=== PATIENT | female | born 1985 | race Caucasian/White ===

== ENCOUNTER 2020-04-09 22:26 | Emergency (ER) | payer OTHER, MEDICAID ==
[~2020-04-09] VITALS: Ht 165.1 cm; Wt 95.3 kg
[~2020-04-09 22:26] MED LIST: ACETAMINOPHEN-1 EAC1 PO; AMOXICILLIN500 M1 PO; HYDROCODONE-AP1 EAC6 PO; MEDROLDOSEPACK PO; NORCO 5-325 TA1 EACH PO; ZOFRAN ODT4 MG SUBLING
[2020-04-09 22:34] VITALS: BP 146/62
[2020-04-09] MEDS ORDERED: INDOMETHACIN 2525 MG PO (23:19)
[2020-04-09] MEDS ORDERED: TYLENOL WITH CO1 TA1 PO (23:19)
== END 2020-04-09 23:33 | disposition home or self-care (01) ==
LOC: M.ERS 22:26
DX: G89.29 Other chronic pain (principal); M25.561 Pain in right knee; M25.562 Pain in left knee; F17.210 Nicotine dependence, cigarettes, uncomplicated; Z98.51 Tubal ligation status; Z90.49 Acquired absence of other specified parts of digestive tract